=== PATIENT | female | born 1995 | race Caucasian/White ===

== ENCOUNTER 2016-12-06 17:28 | Emergency (ER) | payer OTHER ==
--- NOTE | ~2016-12-06 | CR72 ---
[facility] A Service of [facility] & [facility] RADIOLOGY TEXT RESULTS PATIENT: TARIK STONE LOCATION: SED : [birth year] UNIT #: [id number] AGE: [address]: Pratik Olivera MD SEX: F ORDER DR: [id number] [address] [address] [id number] E MR#: [id number] Acc #: [id number] NAME: TARIK STONE : 1995 SEX: F STUDY DATE/TIME: 12/06/2016 22:03 UNIT: SED ROOM: STUDY DESCRIPTION: CR Chest Single View Portable Attending Physician: Pratik Olivera M.D. Ordering Physician: Pratik Olivera M.D. Primary Care Physician: Pelon Montalvo M.D. MEDICAL IMAGING REPORT This report is preliminary unless electronic signature is present. EXAM Frontal view of the chest dated 12/06/2016. COMPARISON Frontal view of the chest dated 12/06/2016 at 2150 hours current one is 2203 hours. HISTORY Status post placement of left chest tube for pneumothorax. FINDINGS Frontal view of the chest was obtained. Previously seen moderate to large pneumothorax earlier this evening has decreased in size. Left-sided chest tube was seen previously. It is also noted currently but it appears to be functioning at this time. There is a small residual left apical pneumothorax seen. Lungs are reexpanded without any significant acute abnormality. Right lung, heart, mediastinum and bones are unremarkable. Dictated by... Shira Mcdonald M.D. THIS IS AN ELECTRONICALLY VERIFIED REPORT Shira Mcdonald M.D. at 12/08/2016 8:43 PM CPR/rnr TD: 12/07/2016 05:25 JOB #: [id number] MEDICAL IMAGING REPORT Page 1 of 1
--- NOTE | ~2016-12-06 | EKG ---
PATIENT: TARIK STONE UNIT #: [id number] Ventricular Rate: 90 BPM Atrial Rate: 90 BPM P-R Interval: 124 ms QRS Duration: 80 ms Q-T Interval: 344 ms QTC Calculation(Bezet): 420 ms P [place]: 67 degrees Calculated R [place]: 47 degrees Calculated T [place]: 51 degrees Diagnosis Line: Normal sinus rhythm Diagnosis Line: Normal ECG Diagnosis Line: When compared with ECG of 18-JUN-2014 20:51, Diagnosis Line: Vent. rate has decreased BY 64 BPM Diagnosis Line: ST no longer depressed in Inferior leads Diagnosis Line: ST no longer depressed in Anterolateral leads Diagnosis Line: Nonspecific T wave abnormality no longer evident Diagnosis Line: in Lateral leads Diagnosis Line: Confirmed by AARON CHOU MD ([id number]) on Diagnosis Line: 12/10/2016 8:30:26 AM INTERPRETING MD: EFFIE VALLEJO
--- NOTE | ~2016-12-06 | CR72 ---
[facility]. [facility] A Service of [facility] & [facility] RADIOLOGY TEXT RESULTS PATIENT: TARIK STONE LOCATION: SED : [birth year] UNIT #: [id number] AGE: [address]: Pratik Olivera MD SEX: F ORDER DR: [id number] [place] [id number] E MR#: [id number] Acc #: [id number] NAME: TARIK STONE : 1995 SEX: F STUDY DATE/TIME: 12/06/2016 21:50 UNIT: SED ROOM: STUDY DESCRIPTION: CR Chest Single View Portable Attending Physician: Pratik Olivera M.D. Ordering Physician: Pratik Olivera M.D. Primary Care Physician: Pelon Montalvo M.D. MEDICAL IMAGING REPORT This report is preliminary unless electronic signature is present. EXAM Portable chest 12/06/2016 21:50 INDICATIONS Chest tube placement for pneumothorax today. FINDINGS AP portable chest compared with earlier this evening. Left side chest tube has been placed. The left pneumothorax is slightly larger than on the earlier exam this evening. The right lung remains clear and there is no right-side pneumothorax. Heart size stable. Dictated by... Riley Beasley Jr., M.D. THIS IS AN ELECTRONICALLY VERIFIED REPORT Riley Beasley Jr., M.D. at 12/07/2016 6:08 AM REGLA/lien TD: 12/07/2016 04:35 JOB #: [id number] MEDICAL IMAGING REPORT Page 1 of 1
--- NOTE | ~2016-12-06 | CR72 ---
[facility]. [facility] A Service of [facility] & [facility] RADIOLOGY TEXT RESULTS PATIENT: TARIK STONE LOCATION: SED : [birth year] UNIT #: [id number] AGE: [address]: Pratik Olivera MD SEX: F ORDER DR: [id number] [address] [address] [id number] E MR#: [id number] Acc #: [id number] NAME: TARIK STONE : 1995 SEX: F STUDY DATE/TIME: 12/06/2016 19:06 UNIT: SED ROOM: STUDY DESCRIPTION: CR Chest Single View Portable Attending Physician: Pratik Olivera M.D. Ordering Physician: (Vikki) Braxton Mc Primary Care Physician: Pelon Montalvo M.D. MEDICAL IMAGING REPORT This report is preliminary unless electronic signature is present. EXAM Portable chest. HISTORY Chest pain and shortness of air for 2 days. FINDINGS There is a left pneumothorax, primarily in the left apex and extending over the left mid and lower lung laterally, estimated at close to 30%. No focal infiltrates. Remainder of the chest is negative. Cardiac and mediastinal contours are normal. Dictated by... Arik Mcdonnell M.D. THIS IS AN ELECTRONICALLY VERIFIED REPORT Arik Mcdonnell M.D. at 12/07/2016 1:10 PM NAVEEN/dillan TD: 12/06/2016 23:28 JOB #: [id number] MEDICAL IMAGING REPORT Page 1 of 1
[~2016-12-06 17:28] MED LIST: ALBUTEROL; ALBUTEROL MININEB; ALBUTEROL17 GM INH; BENADRYL PO; EPIPEN0.3 MG/0.1 IM; LORTAB 5/500 TA1 TA1 PO; MOTRIN600 MG PO; NAPROSYN500 MG PO; PHENERGAN25 MG PO; PREDNISONE PO; PROVENTIL0.83 MG/ML IH; SYMBICORT INH; SYMBICORT80; TAGAMET PO; TYLENOL #3 PO; ZITHROMAX PO; ZYRTEC PO
[2016-12-06] MEDS ORDERED: IMPLANON (17:30)
[2016-12-06] MEDS ORDERED: SYMBICORT80 (17:30)
[2016-12-06] MEDS ORDERED: ALBUTEROL17 GM (17:31)
[2016-12-06 18:17] LABS: BASOPHIL# 0.1 X10e3 (0-0.3); BASOPHIL% 0.6 % (0-2.5); EOSINOPHIL# 0.6 X10e3 (0-0.7); EOSINOPHIL% 6.9 % (0.0-7.0); HEMATOCRIT 42.9 % (35.0-45.0); LYMPHOCYTE# 2.4 X10e3 (1.0-3.5); MEAN CELL VOLUME 88.2 FL (83-96); MEAN CORPUSCULAR HEMOGLOBIN 30.8 PG (28-34); MEAN PLATELET VOLUME 9.2 FL (6.5-11.5); MONOCYTE# 0.7 X10e3 (0-1.0); MONOCYTE% 7.7 % (3.0-12.0); NEUTROPHIL# 5.5 X10e3 (1.5-7.1); NEUTROPHIL% 58.8 % (40-75); PLATELET COUNT 216 X10e3 (140-420); RED BLOOD COUNT 4.86 X10e (3.90-5.30); RED CELL DISTRIBUTION WIDTH 13.2 % (11.0-15.5); WHITE BLOOD COUNT 9.4 X10e3 (4.0-10.5)
[2016-12-06 18:19] LABS: DIFF IND NO
[2016-12-06 18:30] LABS: PROTHROMBIN TIME (PATIENT) 11.6 SECONDS (9.5-12.4)
[2016-12-06 18:36] LABS: ALBUMIN SERUM 5.1 g/dL (3.5-5.0); BILIRUBIN, DIRECT 0.1 mg/dL (0.0-0.2); BILIRUBIN,INDIRECT 0.5 mg/dL (0.0-0.9); BILIRUBIN,TOTAL 0.6 mg/dL (0.2-2.0); BUN/CREATININE RATIO 16.25; CALCIUM SERUM 9.9 mg/dL (8.4-10.2); CREATININE SERUM 0.8 mg/dL (0.6-1.4); GLOM FILT RATE Estimated 106.2 mL/min (>60); POTASSIUM 3.7 mmol/L (3.5-5.1); PROTEIN TOTAL SERUM 8.2 g/dL (6.0-8.3)
[2016-12-06 18:37] LABS: PARTIAL THROMBOPLASTIN TIME 28.1 SECONDS (25.6-38.1)
[2016-12-06 18:37] LABS: POC - CKMB <1.0 ng/mL (0.0-7.9); POC - TROPONIN <0.05 ng/mL (<=0.05)
[2016-12-06 18:58] LABS: URINE SOURCE CLEAN CATCH
[2016-12-06 19:02] LABS: URINE APPEARANCE CLEAR; URINE BILIRUBIN NEG (NEG); URINE BLOOD NEG (NEG); URINE COLOR YELLOW; URINE GLUCOSE NEG (NORM); URINE KETONE NEG (NEG); URINE LEUKOCYTE ESTERASE NEG (NEG); URINE NITRATE POS (NEG); URINE PROTEIN NEG (NEG); URINE SPECIFIC GRAVITY 1.015 (1.003-1.035); URINE UROBILINOGEN 0.2 MG/DL (NORM)
[2016-12-06 19:08] LABS: MICRO INDICATED? YES
[2016-12-06 19:09] LABS: CULTURE INDICATED? YES; URINE BACTERIA 1+ (NEG); URINE RBC 0-2 /[HPF] (0-2); URINE SQUAMOUS EPITHELIAL CELL OCCAS /[HPF]
[2016-12-06 19:58] LABS: POC - CKMB <1.0 ng/mL (0.0-7.9); POC - TROPONIN <0.05 ng/mL (<=0.05)
== END 2016-12-07 01:56 ==
LOC: SED 17:28
PROVIDERS: Nurse Practitioner
DX: J93.83 Other pneumothorax (principal); J45.909 Unspecified asthma, uncomplicated; Z88.1 Allergy status to other antibiotic agents; Z79.899 Other long term (current) drug therapy
CPT/HCPCS: 36415; 71010; 80048; 80076; 81003; 82553; 84484; 84703; 85025; 85379; 85610; 85730; 87086; 87088; 87186; 93005; 96374; 96375; 96376; 99291; J2060; J2270; J2405